=== PATIENT | female | born 1990 | race Asian ===

== ENCOUNTER 2021-02-13 06:15 | Inpatient (IN) ==
--- NOTE | 2021-02-13 07:44 | History & Physical Report ---
Date of Service February 13, 2021 Assessment & Plan (1) : Emmy is a 30 y/o female currently at 38-5/7 WGA with an MARIANELA 02/22/21 as determined by US#1 who presents in early labor with regular contractions and SROM beginning around 0400 this AM. She presents with her and Associate Curator. * NST reactive - Fetus cat I. Eek demonstrating ctx q3m. 2.5/80/-[address] Barker around 0700 this AM. Promote ambulation, recheck in 2hr * Admit to L&D for anticipated * Labs (CBC, COVID, UA), IV lock, ongoing NST * plans and preferences reviewed. Would like to attempt delivery without pharmacologic analgesia. Associate Curator present for labor support. History of Present Illness Primary Care Provider: NO PCP Emmy is a 30 y/o female currently at 38-5/7 WGA with an MARIANELA 02/22/21 as determined by US#1 who is here for a labor check in setting of contractions and LOF at 4AM. Her has been uncomplicated. Endorses contractions since last night -- initially irregular q4-8min, then this morning becoming more regular q4m per her account; good movement; +fluid loss around 4AM, +bloody show this AM with minimal bleeding since Had regular appointments with OB. Labs: (Date 07/08/20) Blood type: AB+ Antibody screen: neg H.7 Hct: 39.4 WBC: 9.28 Plt: 279 Rubella: immune VDRL/RPR: NR Gonorrhea: negative Chlamydia: negative HIV: negative HbSAg: negative GBS: negative Other screens: NIPS: negative for trisomies Allergies Allergy/AdvReac Type Severity Reaction Status Date / Time No Known Allergies Allergy Verified 02/11/21 09:51 Home Medications Medication Instructions Recorded Confirmed Type prenat.vits,demetrius,[id number] 1 tab PO DAILY 06/30/20 02/13/21 History Patient History Medical History History of chicken pox Supervision of normal first Surgical History No history of previous surgery Family History Father Diabetes Kidney disease Hypertension Denies family history of Ovarian cancer Prostate cancer Myocardial infarction Breast cancer Colorectal cancer Social History Smoking Status: Never smoker Hx Alcohol Use: No Hx Substance Use: No Preferred Language: [place] Communication Ability: Effective Visual Impairment: No Limitations Hearing Ability: Normal Beliefs That Will Affect Care: None marital status: marital status details: Boo Brambila (31) [phone] Current Living Situation: Spouse Current Living Situation Comment: lives with spouse, no pets current occupational status: employed current occupation: [employer] Feels Safe at Home: Yes Childhood Exposure to Second-Hand Smoke: No Dental Care, Regularly: No Physical Activity Frequency: 3-4 Times per Week Seatbelt Use: always Sunscreen Use: No Assistive Devices: None Review of Systems no fever, no chills and no sweats denies headache no dyspnea no chest pain, no dyspnea, no dyspnea at rest and no palpitations no dysuria no breast pain Physical Exam Physical Exam: General: Alert, oriented. No acute distress. Cardiac: Regular rate and rhythm, no murmurs/rubs/gallops. Respiratory: Clear to auscultation bilaterally a/p, no wheezes/rales/rhonchi. No increased work of breathing. Symmetrical chest rise. No respiratory distress. Pelvic: Dilation 2.5 cm; Effacement 80%; Station -[address] Barker Lower Extremities: No lower extremity edema or swelling. No deep calf pain. Xuan's negative bilaterally Results & Data ([facility]) Vital Signs (Past 12 Hours) Vital Signs Temp Pulse Resp BP 02/13/21 06:20 81 125/60 02/13/21 06:15 36.5 C 81 18 125/60 Monitoring External Monitor Baseline: 135 Variability: 6-25, moderate Accelerations: 15x15 Decelerations: none Tocodynamometer Quality: moderate Frequency: q3m, approx. 80-90sec/ctx Supervising Physician Co-Signing Physician Notes Resident Physician Supervision Note: I interviewed and examined the patient. Discussed with Dr. Otto and agree with findings and plan as documented in the note. Any exceptions or clarifications are listed here: 30yo at term, with prom. now beginning to have more contractions. fhts categ 1. rec iv site. expectant mgmt. gross rom per nurse, last exam per nurse with no palpable membranes. gbs neg. Documented By: Daphney Norman MD, FACOG Resident Activity Tracking Resident Involvement: Resident Care Provided Care Provided: Adult Hospital Medicine and OB Delivery
[2021-02-13] MEDS ORDERED: OXYTOCIN 30 UNITS/500 ML BAG IV PRN ×2 (07:49→18:41)
[2021-02-13] MEDS ORDERED: LACTATED RINGER'S 1,000 ML IV PRN (07:49)
[2021-02-13 08:21] LABS: Hematocrit (blood only) 33.9 % (37-47); Mean Corpuscular Hemoglobin 23.1 pg (25-34); Mean Corpuscular Hgb Conc 32.4 g/dL (32-36); Mean Corpuscular Volume 71.1 fL (80-100); Mean Platelet Volume 8.9 fL (7.4-10.4); Platelet Count 413 K/uL (130-400); RDW Coefficient of Variation 17.1 % (11.5-14.5); RDW Standard Deviation 43.8 fL (36.4-46.3); Red Blood Count 4.77 M/uL (4.2-5.4); White Blood Count 15.08 K/uL (4.8-10.8)
--- NOTE | 2021-02-13 14:43 | Labor Progress Brief Note ---
Date of Service February 13, 2021 Subjective Reason For Note: Routine Evaluation pt desires cx check. Assessment & Plan (1) Normal labor: good cx change. fhts categ 1. Admission and Anticipated Discharge Date Admission Date: February 13, 2021 Physical Exam Constitutional: WD/WN, vitals as above Genitourinary: Manual OB Exam: + cervical dilation (8-9), + cervical effa cement 90% and + station + 1 OB Exam Monitor Tracing: + external FHT monitor used (130 ), + external uterine monitor used (q3-4), + category I and + normal FHT variability Results & Data ([facility]) Vital Signs (Past 12 Hours) Vital Signs Temp Pulse Resp BP 02/13/21 14:04 67 136/69 02/13/21 14:03 97.5 F L 18 02/13/21 13:17 18 02/13/21 12:11 97.5 F L 78 18 116/76 02/13/21 11:11 18 02/13/21 10:13 72 120/80 02/13/21 10:09 98.1 F 18 02/13/21 09:25 18 02/13/21 09:00 97.9 F 18 02/13/21 08:38 18 02/13/21 08:35 18 02/13/21 07:10 97.9 F 18 02/13/21 06:30 18 02/13/21 06:20 81 125/60 02/13/21 06:15 97.7 F 81 18 125/60 Coding Level of Care Code None Diagnoses Normal labor O80; Z37.9
[2021-02-13] MEDS ORDERED: LIDOCAINE 1% LOCAL 20 ML VIAL ONE (15:36)
--- NOTE | 2021-02-13 18:00 | Anesthesiology Consultation ---
Date of Service February 13, 2021 Assessment & Plan (1) Encounter for pre-operative examination: Chart Review Chart Review: Acceptable Risk for Surgery and Patient NOT seen in Pre Admission Testing Consults Requested none History Surgery Operation Date: 02/13/21 17:50 Proposed Procedures p Dilation and Curettage(Bilateral) - Daphney Norman MD, FACOG Height/Weight Height: 5 ft Weight: 80.286 kg Allergies Allergy/AdvReac Type Severity Reaction Status Date / Time No Known Allergies Allergy Verified 02/11/21 09:51 Medications Home Medications Medication Instructions Recorded Confirmed Last Taken prenat.vits,demetrius,hmg-[id number]-ushgf 1 tab PO DAILY 06/30/20 02/13/21 02/12/21 Active Medications Generic Name Dose Route Start Last Admin Trade Name Freq PRN Reason Stop Dose Admin Lactated Ringer's 1,000 mls @ 125 mls/hr 02/13/21 07:49 02/13/21 17:20 Lr IV 02/15/21 07:48 Infused .Q8H PRN Infusion L&D Protocol Protocol Past Medical History Medical History (Updated 02/13/21 @ 18:00 by Familia Bland MD) Anemia History of chicken pox Supervision of normal first Past Family History Family History Father Diabetes Kidney disease Hypertension Denies family history of Ovarian cancer Prostate cancer Myocardial infarction Breast cancer Colorectal cancer Past Surgical History Surgical History No history of previous surgery Social History Smoking Status: Never smoker Hx Alcohol Use: No Hx Substance Use: No Physical Exam Vital Signs Last Vital Signs Temp 36.4 C L 02/13/21 14:03 Pulse 103 H 02/13/21 17:52 Resp 18 02/13/21 15:00 BP 122/63 02/13/21 17:52 Testing Laboratory Results 02/13/21 08:03
[2021-02-13] MEDS ORDERED: SODIUM CHLORIDE 0.9% 250 ML IV PRN (18:02)
[2021-02-13] MEDS ORDERED: ePHEDrine sulfate 50 MG/ML AMP IV PRN (18:02)
[2021-02-13] MEDS ORDERED: PHENYLEPHRINE 100MCG/ML 5ML SYR IV PRN (18:02)
[2021-02-13] MEDS ORDERED: fentaNYL citrate 100 MCG/2 ML VIAL IV PRN (18:02)
[2021-02-13] MEDS ORDERED: MEPERIDINE HCL 25 MG/ML CARP/VIAL IV PRN (18:02)
[2021-02-13] MEDS ORDERED: HYDROmorphone INJ 1 MG/ML SYRINGE IV PRN (18:02)
[2021-02-13] MEDS ORDERED: ONDANSETRON INJ 2 MG/ML 2 ML VIAL IV PRN (18:02)
[2021-02-13] MEDS ORDERED: ATROPINE SULFATE 0.1 MG/ML 10ML SYR IV PRN (18:02)
[2021-02-13] MEDS ORDERED: LABETALOL HCL IV 5 MG/ML 20ML IV PRN (18:02)
[2021-02-13] MEDS ORDERED: ceFAZolin 2000MG 2,000 MG/15 ML SYR IV ONE (18:06)
[2021-02-13] MEDS ORDERED: fentaNYL citrate 100 MCG/2 ML VIAL ONE (18:07)
[2021-02-13] MEDS ORDERED: miSOPROStoL 100 MCG TAB ONE (18:19)
[2021-02-13] MEDS ORDERED: PROPOFOL IV EMULSION 10 MG/ML 20 ML VIAL IV ONE (18:31)
[2021-02-13] MEDS ORDERED: LIDOCAINE 2% MPF LOCAL 5 ML VIAL INFIL ONE (18:31)
[2021-02-13] MEDS ORDERED: PHENYLEPHRINE 100MCG/ML 5ML SYR ONE (18:31)
[2021-02-13] MEDS ORDERED: OXYTOCIN 10 UNITS/ML VIAL ONE (18:31)
[2021-02-13] MEDS ORDERED: SUCCINYLCHOLINE CHLORIDE 20 MG/ML 10 ML VIAL IV ONE (18:31)
[2021-02-13] MEDS ORDERED: CARBOPROST TROMETHAMINE 250 MCG/ML AMPUL ONE (18:32)
[2021-02-13] MEDS ORDERED: DEXAMETHASONE SOD INJ 4 MG/ML VIAL ONE (18:32)
[2021-02-13] MEDS ORDERED: ONDANSETRON INJ 2 MG/ML 2 ML VIAL ONE (18:32)
--- NOTE | 2021-02-13 18:38 | Post Operative Brief Note ---
PG Immediate Post Op with CF Date of Surgery February 13, 2021 Pre & Post Diagnosis Operation Date: 02/13/21 17:50 <No data on this case meets the specified criteria> 1. Retained placenta I identified the patient and participated in the time-out.: Yes Procedure Operation Date: 02/13/21 17:50 <No data on this case meets the specified criteria> 1. Exam under anesthesia 2. Manual removal of placenta 3. Uterine curettage. Surgeon Daphney Norman MD, FACOG Gaming Host none Estimated Blood Loss 600 Findings Consistent with Post-Op Diagnosis (placenta cleaved from left side of uterus, came out in pieces, minimal result on curettage. uterus contracted down shortly after with dilute pitocin and hemabate. ) Fluids 1600 Specimens Specimen Description: placenta Drains Horner Catheter Anesthesia Type General Complications none
[2021-02-13] MEDS ORDERED: oxyCODONE/ACETAMINOPHEN 5mg/325mg TAB PO PRN (18:41)
[2021-02-13] MEDS ORDERED: ACETAMINOPHEN 325 MG TAB PO PRN (18:41)
[2021-02-13] MEDS ORDERED: miSOPROStoL 100 MCG TAB PR ONE (18:51)
[2021-02-13] MEDS ORDERED: CARBOPROST TROMETHAMINE 250 MCG/ML AMPUL IM ONE (18:51)
[2021-02-13] MEDS ORDERED: DIPHTHERIA/TETANUS/PERTUSSIS 0.5 ML SYR/VIAL IM ONE (18:51)
[2021-02-13] MEDS ORDERED: SUPERCREAM 0.870% 15 GM JAR EXT PRN (18:51)
[2021-02-13] MEDS ORDERED: HYDROCORTISONE ACETATE 25 MG SUPP PR PRN (18:51)
[2021-02-13] MEDS ORDERED: BENZOCAINE 20% AER SPR 82.5 GM CAN EXT PRN (18:51)
[2021-02-13] MEDS ORDERED: OXYTOCIN 20 UNITS in LACTATED RINGER'S 1,000 ML IV SCH (19:15)
--- NOTE | 2021-02-13 19:16 | Delivery Summary ---
Vaginal Delivery Summary Date of Service February 13, 2021 Vaginal Delivery Summary and 3rd Degree LAC (partial) The patient dilated to complete and was pushing effectively but exhausted and requested assistance. SVE C/C/+3-. Informed consent obtained to proceed with vacuum assisted vaginal delivery. Essentially outlet vacuum used over one contraction with no pop-offs and one pull to deliver a viable male Apgars 8 and 9 via over partical 3rd degree perineal laceration. Mouth and nose bulb suctioned at perineum. Shoulders and body delivered with ease. was vigorous and crying at . Cord clamped at 30 seconds of life and infant to maternal abdomen where the cord was then doubly clamped and cut. Laceration repaired in layers, reinforcing anal sphincter with 2-0 vicryl and completing repair with 3-0 vicyrl. At 20min from delivery the placenta did not show signs of detachment. Patient counseled that may be likely that I would need to sweep the uterus to obtain placenta and offered pain meds as patient was unmedicated for her delivery. She declined. Exam of uterus with difficulty finding the plane of placenta in order to cleave from the uterine wall. Attempted twice but patient although cooperative, clearly having trouble tolerating attempts and currently no excess bleeding. Recommended to couple EUA and removal of placenta under general anesthesia. Anesthesia notified, our staff aware, plan to take to our OR #3 to perform procedure. Consent reviewed and obtained. Patient and OR readied. All questions answered. Cervix had been examined and was intact. 2nd iv site obtained. T&C 2 units. Ancef iv planned. Horner placed. At this point ebl 50cc, mostly from laceration. [facility] Vaginal Delivery Charge Vaginal Delivery Codes: 77018 global code for the antepartum, delivery, and post- Delivery Type Details: and 3rd Degree LAC (partial)
--- NOTE | 2021-02-13 19:19 | Operative Report ---
PG Post Operative Report Pre & Post Diagnosis Operation Date: 02/13/21 17:50 Pre-Op Diagnosis: Retained placenta Post-Op Diagnosis: same I identified the patient and participated in the time-out.: Yes Procedure Operation Date: 02/13/21 17:50 Actual Procedures 1. Exam under anesthesia. 2. Manual removal of placenta 3. Curettage. Daphney Norman MD, FACOG Surgeon Daphney Norman MD, FACOG Network Security Consultant none Estimated Blood Loss 600 Findings Consistent with Post-Op Diagnosis (placenta cleaved from left side of uterus, came out in pieces, minimal result on curettage. uterus contracted down shortly after with dilute pitocin and hemabate. ) Fluids 1600 Specimens fragments of placenta Drains pack Anesthesia Type General Complications none Disposition Accompanied Patient To Recovery: No Disposition: L&D Indications 30yo with retained placenta after of term . No anesthesia for delivery and therefore recommended above procedure under anesthesia as difficult to tolerate with attempt at bedside. Couple agreeable. Consent signed. Prior to moving to OR gush of blood approximately 200cc noted. Description of Procedure The patient was taken to the operating room and identified. After adequate general anesthesia was obtained she was placed in the dorsolithotomy position and prepped and draped in the usual sterile fashion. A Pack catheter had already been placed. The operators hand was placed into the vagina and into the uterus and to the best of her ability the placenta was cleaved away from the left lateral wall of the uterus and removed in pieces. The uterus was swept 2 additional times with no further retained products noted. A anterior retractor and right angle retractor were used to visualize the cervix which was grasped on its anterior lip with a ring forcep. The banjo curette was gently placed within the uterine cavity and the uterus was curettaged gently. This did not result in any additional tissue. The operators hand was used again to sweep the uterus and no further retained products were noted. Dilute Pitocin was already running and given that the uterus was not vane down greatly, IM Hemabate was administered under my direction by anesthesia. With continued bimanual massage the uterus began to contract down and no longer would admit the operators hand past the lower cervix/uteirne segment. Additionally 800mcg of cytotec was given rectally. At this point while monitoring the bleeding, the partial third-degree laceration was re-repaired using both 2-0 and 3-0 Vicryl. With this exam a right sulcal tear was noted and was also reapproximated using 3-0 Vicryl. Rectal exam was negative for sutures. The fundus was firm and the hemostasis was adequate and therefore the procedure was terminated. The patient was returned to the supine position and awoken from anesthesia. She was transported to the recovery room in stable condition. All sponge lap needle counts were correct x2. I attest to the content of the Intraoperative Record and any orders documented t herein. Any exceptions are noted below. OB Procedure charges OB Charges 80453 PP Curettage (eua and manual removal of placenta)
[2021-02-13] MEDS: IBUPROFEN 600 MG TAB PO PRN (19:52)
[2021-02-13 19:58] LABS: Hematocrit (blood only) 29.6 % (37-47); Hemoglobin 9.5 g/dL (12.0-16.0)
--- NOTE | 2021-02-13 20:41 | Anesthesiology Progress Note ---
Date of Service February 13, 2021 Anesthesia Post Procedure Vital Signs Vital Signs: Temp Pulse Resp BP Pulse Ox 02/13/21 20:36 97 H 100 02/13/21 20:35 121 H 119/57 L 02/13/21 20:31 115 H 100 02/13/21 20:26 113 H 100 02/13/21 20:25 117 H 114/78 02/13/21 20:21 115 H 100 02/13/21 20:16 120 H 99 02/13/21 20:15 113 H 111/75 02/13/21 20:11 119 H 100 02/13/21 20:06 95 H 100 02/13/21 20:05 111 H 109/75 02/13/21 20:01 101 H 100 02/13/21 19:56 89 100 02/13/21 19:55 100 H 118/72 02/13/21 19:54 100 H 152/70 H 02/13/21 19:51 111 H 100 02/13/21 19:46 107 H 100 02/13/21 19:41 113 H 100 02/13/21 19:40 107 H 127/79 02/13/21 19:36 101 H 100 02/13/21 19:31 105 H 100 02/13/21 19:26 112 H 146/56 H 100 02/13/21 19:24 106 H 140/66 02/13/21 19:21 110 H 100 02/13/21 19:19 111 H 170/119 H 02/13/21 19:16 107 H 100 02/13/21 19:11 120 H 94 02/13/21 19:06 109 H 159/67 H 100 02/13/21 19:01 96 H 96 02/13/21 18:56 82 117/59 L 100 02/13/21 17:52 103 H 122/63 02/13/21 17:50 91 H 128/66 02/13/21 17:48 84 131/66 02/13/21 17:46 93 H 126/62 02/13/21 17:44 79 139/65 02/13/21 17:43 82 131/63 02/13/21 17:36 74 133/63 02/13/21 17:35 77 126/74 02/13/21 17:32 90 136/63 02/13/21 17:29 111 H 127/64 06/18/21 17:25 92 H 128/73 02/13/21 16:45 18 02/13/21 16:30 18 02/13/21 16:00 86 125/71 02/13/21 15:00 18 02/13/21 14:04 67 136/69 02/13/21 14:03 36.4 C L 18 02/13/21 13:17 18 02/13/21 12:11 36.4 C L 78 18 116/76 02/13/21 11:11 18 02/13/21 10:13 72 120/80 02/13/21 10:09 36.7 C 18 02/13/21 09:25 18 02/13/21 09:00 36.6 C 18 02/13/21 08:38 18 02/13/21 08:35 18 02/13/21 07:10 36.6 C 18 02/13/21 06:30 18 02/13/21 06:20 81 125/60 02/13/21 06:15 36.5 C 81 18 125/60 Transfer of Care Handoff Completed per policy Notes Mental Status: alert / awake / arousable Patient Amnestic to Procedure: Yes Nausea / Vomiting: adequately controlled Pain: adequately controlled Airway Patency, RR, SpO2: stable & adequate BP & HR: stable & adequate Hydration State: stable & adequate Anesthetic Complications: no major complications apparent and Pt Satisfied with anesthetic care
[2021-02-13] MEDS: DOCUSATE SODIUM 100 MG CAP PO SCH (21:41)
[2021-02-14] MEDS: IBUPROFEN 600 MG TAB PO PRN ×3 (04:35→21:03)
[2021-02-14] MEDS: ceFAZolin 2000MG 2,000 MG/15 ML SYR IV SCH ×3 (04:36→22:08)
--- NOTE | 2021-02-14 06:18 | Obstetrical Progress Note ---
Date of Service <Larry Otto MD - Last Filed: 02/14/21 07:56> February 14, 2021 Assessment & Plan <Larry Otto MD - Last Filed: 02/14/21 07:56> (1) : Emmy is a 30 y/o female who is now PPD #1 following VAVD at 38-5/7 weeks; her immediate course was complicated by retained placental tissue and PPH, which did require EUA for manual removal. She is also currently being managed for acute blood loss anemia Acute Blood Loss Anemia - s/p EUA for removal of retained placental tissue on 02/13 with 600-800cc EBL - Tachycardia with normal BPs. +signs/symptoms of anemia- fatigue, li ghtheadedness/dizziness with walking around - H&H trend: 11 at presentation --> 9.5 s/p delivery --> 6.1 this AM - Typed and screened. Discussion held between Dr. Norman and patient RE: indications for transfusion at this point. R/B/A discussed re: transfusion. Amenable to proceed. Consent form completed - 2U pRBC ordered, blood bank informed - Repeat H&H scheduled @ 1300hr -- monitor - Feels well otherwise today. Eating well. Monitor voiding - did require straight cath x 1 last night. - Pain well controlled with ibuprofen 600mg Q4H PRN. - Routine PPD care -- OOB, ambulation, diet throughout today after transfusions - After discharge will have [address] Norman Subjective <Larry Otto MD - Last Filed: 02/14/21 07:56> Emmy is a 30 y/o female who is now PPD #1 following VAVD at 38-5/7 weeks; her immediate course was complicated by retained placental tissue, which did require EUA for manual removal. Throughout this course, she did have an EBL of approx 600cc blood. Reports feeling OK this AM. Fatigued. Getting lightheaded with walking around which resolves upon lying back down. Attempted to void once overnight but was unsuccessful, so did require straight cath x 1. Endorses mild abdominal cramping pain well managed on analgesics. Tolerating meals well.Some persistent lochia with some improvement this morning. Planning to breast feed. Review of Systems Denies fever, chills, sweats Denies shortness of breath, difficulty breathing, chest pain, palpitations, chest pressure. Denies breast pain. Mild COBIAN, no changes in vision. Physical Exam <Larry Otto MD - Last Filed: 02/14/21 07:56> General: Alert, oriented. No acute distress. Cardiac: Mild tachycardia with normal rhythm. S1 and S2 present with grade 1/6 systolic murmur best heard at the LUSB and LLSB. Respiratory: Clear to auscultation bilaterally a/p, no wheezes/rales/rhonchi. No increased work of breathing. Symmetrical chest rise. No respiratory distress. Abdomen: Soft, nontender, nondistended. Bowel sounds present. Uterus: Uterine fundus firm, palpable 1-2 cm below umbilicus. Lower Extremities: No lower extremity edema or swelling. No deep calf pain. Xuan's negative bilaterally. Results & Data ([facility]) <Larry Otto MD - Last Filed: 02/14/21 07:56> Vital Signs (Past 12 Hours) Vital Signs Temp Pulse Pulse Resp BP BP BP 02/14/21 04:09 36.9 C 110 H 16 110/70 02/13/21 23:40 36.9 C 92 H 16 105/75 02/13/21 21:31 109 H 02/13/21 21:26 106 H 139/65 02/13/21 21:21 124 H 02/13/21 21:16 115 H 02/13/21 21:15 96 H 113/66 02/13/21 21:11 91 H 02/13/21 21:06 108 H 02/13/21 21:05 106 H 18 117/59 L 02/13/21 21:01 114 H 02/13/21 20:56 107 H 02/13/21 20:55 107 H 123/62 02/13/21 20:51 100 H 02/13/21 20:46 103 H 02/13/21 20:45 114 H 117/66 02/13/21 20:41 114 H 02/13/21 20:36 97 H 02/13/21 20:35 121 H 18 119/57 L 02/13/21 20:31 115 H 02/13/21 20:26 113 H 02/13/21 20:25 117 H 114/78 02/13/21 20:21 115 H 02/13/21 20:16 120 H 02/13/21 20:15 113 H 111/75 02/13/21 20:11 119 H 02/13/21 20:06 95 H 02/13/21 20:05 36.8 C 111 H 18 109/75 02/13/21 20:01 101 H 02/13/21 19:56 89 02/13/21 19:55 100 H 18 118/72 02/13/21 19:54 100 H 152/70 H 02/13/21 19:51 111 H 02/13/21 19:46 107 H 02/13/21 19:45 18 02/13/21 19:41 113 H 02/13/21 19:40 107 H 127/79 02/13/21 19:36 101 H 02/13/21 19:35 18 02/13/21 19:31 105 H 02/13/21 19:26 112 H 146/56 H 02/13/21 19:25 18 02/13/21 19:24 106 H 140/66 02/13/21 19:21 110 H 02/13/21 19:19 111 H 170/119 H 02/13/21 19:16 107 H 02/13/21 19:15 18 02/13/21 19:11 120 H 02/13/21 19:06 109 H 159/67 H 02/13/21 19:05 36.6 C 16 02/13/21 19:01 96 H 02/13/21 18:56 82 117/59 L Pulse Ox 02/14/21 04:09 99 02/13/21 23:40 99 02/13/21 21:31 100 02/13/21 21:26 100 02/13/21 21:21 100 02/13/21 21:16 100 02/13/21 21:15 02/13/21 21:11 100 02/13/21 21:06 99 02/13/21 21:05 02/13/21 21:01 99 02/13/21 20:56 100 02/13/21 20:55 02/13/21 20:51 99 02/13/21 20:46 99 02/13/21 20:45 02/13/21 20:41 100 02/13/21 20:36 100 02/13/21 20:35 02/13/21 20:31 100 02/13/21 20:26 100 02/13/21 20:25 02/13/21 20:21 100 02/13/21 20:16 99 02/13/21 20:15 02/13/21 20:11 100 02/13/21 20:06 100 02/13/21 20:05 02/13/21 20:01 100 02/13/21 19:56 100 02/13/21 19:55 02/13/21 19:54 02/13/21 19:51 100 02/13/21 19:46 100 02/13/21 19:45 100 02/13/21 19:41 100 02/13/21 19:40 02/13/21 19:36 100 02/13/21 19:35 100 02/13/21 19:31 100 02/13/21 19:26 100 02/13/21 19:25 02/13/21 19:24 02/13/21 19:21 100 02/13/21 19:19 02/13/21 19:16 100 02/13/21 19:15 02/13/21 19:11 94 02/13/21 19:06 100 02/13/21 19:05 02/13/21 19:01 96 02/13/21 18:56 100 <Daphney Norman MD, FACOG - Last Filed: 02/14/21 08:30> Co-Signing Physician Notes Resident Physician Supervision Note: I was present with Dr. Otto during the history and exam. I discussed the case with the resident and agree with the findings and plan as documented in the note . Any exceptions or clarifications are listed here: Patient noted some dizziness when ambul to br but resolved in bed. aware of events yesterday, denies ?s. discussed poss need for transfusion prior to H/H returning. After pph yesterday, only had starting hgb of 11. In fact, significant anemia, and reviewed transfusion and consent signed. plan h/h 4hr transfusion. doing wel post delivery. . ff 2 down nt. no significant bleeding since procedure. questions answered. aware Dr. Cevallos assuming care. Documented By: Daphney Norman MD, FACOG Resident Activity Tracking <Larry Otto MD - Last Filed: 02/14/21 07:56> Resident Involvement: Resident Care Provided Care Provided: Adult Hospital Medicine and OB Delivery
[2021-02-14 07:37] LABS: Hemoglobin 6.1 g/dL (12.0-16.0)
[2021-02-14] MEDS ORDERED: SODIUM CHLORIDE 0.9% 250 ML IV PRN (07:40)
[2021-02-14] MEDS ORDERED: FERROUS SULFATE 325 MG TAB PO SCH (08:00)
[2021-02-14] MEDS ORDERED: PRENATAL VITAMIN 1 TAB PO SCH (08:00)
[2021-02-14] MEDS ORDERED: ACETAMINOPHEN 325 MG TAB PO SCH (08:00)
[2021-02-14] MEDS ORDERED: diphenhydrAMINE 50 MG/ML VIAL IV SCH (08:00)
[2021-02-14 18:37] LABS: Hematocrit (blood only) 29.1 % (37-47); Hemoglobin 9.6 g/dL (12.0-16.0); Mean Corpuscular Hemoglobin 24.7 pg (25-34); Mean Corpuscular Volume 74.8 fL (80-100); Mean Platelet Volume 8.7 fL (7.4-10.4); Nucleated RBC # (auto) 0.03 K/uL (0-0); Nucleated RBC % (auto) 0.3 %; Platelet Count 242 K/uL (130-400); RDW Coefficient of Variation 19.4 % (11.5-14.5); RDW Standard Deviation 52.6 fL (36.4-46.3); Red Blood Count 3.89 M/uL (4.2-5.4); White Blood Count 13.18 K/uL (4.8-10.8)
[2021-02-14] MEDS: DOCUSATE SODIUM 100 MG CAP PO SCH (21:04)
[2021-02-15] MEDS: IBUPROFEN 600 MG TAB PO PRN ×2 (05:58→14:29)
[2021-02-15] MEDS: DOCUSATE SODIUM 100 MG CAP PO SCH (08:45)
--- NOTE | 2021-02-15 09:28 | Obstetrical Progress Note ---
Date of Service February 15, 2021 Subjective Ambulation: ambulating normally Voiding: no voiding problems Passing Gas:: Yes Diet Tolerance:: regular diet Lochia:: Small Feeding Type:: breast feeding Physical Exam Constitutional WD/WN, vitals as above Eyes PERRL, conjunctivae normal, anicteric sclerae Neck normal visual inspection Respiratory normal respiratory effort and able to speak in complete sentences; no respiratory distress and no labored breathing Cardiovascular Rate/Rhythm: regular rate and regular rhythm Extremities: no edema Chest (Breasts) Chest: normal inspection of chest Gastrointestinal (Abdomen) Inspection/Auscultation: abdomen normal to inspection Soft, postgravid Psychiatric A+Ox3, euthymic affect Genitourinary OB Exam Abdomen: + fundal height Fundus: + firm and + relation to umbilicus (fundus just below umbilicus); not tender Results & Data ([facility]) Vital Signs (Past 12 Hours) Vital Signs Temp Pulse Resp BP Pulse Ox 02/14/21 23:23 98.2 F 88 16 102/66 99
--- NOTE | 2021-02-16 20:28 | Discharge Summary ---
Date of Service Date of admission: February 13, 2021 Date of discharge: February 15, 2021 Admission HPI Per Admitting Provider Emmy is a 30 y/o female currently at 38-5/7 WGA with an MARIANELA 02/22/21 as determined by US#1 who is here for a labor check in setting of contractions and LOF at 4AM. Her has been uncomplicated. Endorses contractions since last night -- initially irregular q4-8min, then this morning becoming more regular q4m per her account; good movement; +fluid loss around 4AM, +bloody show this AM with minimal bleeding since Had regular appointments with OB. Labs: (Date 07/08/20) Blood type: AB+ Antibody screen: neg H.7 Hct: 39.4 WBC: 9.28 Plt: 279 Rubella: immune VDRL/RPR: NR Gonorrhea: negative Chlamydia: negative HIV: negative HbSAg: negative GBS: negative Other screens: NIPS: negative for trisomies Discharge Data Consultations 02/13/21 07:49 Consult Anesthesiology Stat Procedures Performed Operation Date: 02/13/21 17:50 Actual Procedures 1. EUA 2. Manual removal of placenta 3. Curettage - Daphney Norman MD, [facility] [place] Hospital Course (1) Retained placenta: The patient progressed to complete dilation and pushed to deliver viable infant. Unfortunately >20min from infant delivery, placenta remained undelivered. Attempted manual extraction at bedside but patient was unmedicated and difficult for her to tolerate and for me to perform. Recommended proceeding to OR for above stated procedures under anesthesia. Above procedures performed. Total bleeding at least 600cc. Received dilute pitocin, hemabate and rectal cytotec and 24hrs of antibiotics intravenously. Bleeding remained stable and uterine tone improved. Unfortunately her postoperative hemoglobin was 6.1 and she received 2uPRBC and her post transfusion hemoglobin was approximately 9.5. She was stable to go home on ppd#2. Routine instructions reviewed. Followup in 6wks recommended. Coding Level of Care Code None Diagnoses Retained placenta O73.0
== END 2021-02-15 17:45 | disposition home or self-care (01) | DRG 768 ==
LOC: OPB 06:15 → 4S1 06:15 → 4S2 21:45